=== PATIENT | male | born 1950 | race Caucasian/White ===

== ENCOUNTER 2018-04-01 15:28 | Emergency (ER) | payer OTHER ==
[~2018-04-01] VITALS: Ht 182.9 cm; Wt 114.3 kg
[~2018-04-01 15:28] MED LIST: CALCIUM; CHONDROITIN SU500 G1; GLUCOSAMINE1000 MG; MELATONIN3 MG PO; MSM1500 MG PO; PERCOCET 5-3251 EACH PO; PRINIVIL20 MG PO; SAW PALMETTO500 MG PO; SIMVASTATIN40 MG PO; VITAMIN D1000 UNI1 PO
[2018-04-01] MEDS ORDERED: AVAPRO 150 MG150 M1 PO (15:44)
[2018-04-01] MEDS ORDERED: FLOMAX0.4 MG PO (15:44)
[2018-04-01] MEDS ORDERED: PROSCAR 5MG TABL5 MG PO (15:44)
[2018-04-01] MEDS ORDERED: CLARITIN10 MG PO (15:45)
[2018-04-01] MEDS ORDERED: ROBAXIN500 MG PO (17:55)
[2018-04-01 18:10] VITALS: BP 128/91
== END 2018-04-01 18:12 | disposition home or self-care (01) ==
LOC: M.ERS 15:28
DX: S16.1XXA Strain of muscle, fascia and tendon at neck level, initial encounter (principal); Z88.6 Allergy status to analgesic agent; S30.0XXA Contusion of lower back and pelvis, initial encounter; W19.XXXA Unspecified fall, initial encounter; Y93.89 Activity, other specified; Y92.89 Other specified places as the place of occurrence of the external cause; Y99.8 Other external cause status

== ENCOUNTER 2018-08-11 13:47 | Inpatient (IN) | payer OTHER ==
[~2018-08-11] VITALS: Ht 182.9 cm; Wt 116.6 kg
--- NOTE | ~2018-08-11 | PROC ---
[facility] [address] [place] [address] PROCEDURE REPORT Name: MIKALA ALMEIDA Room: [address] IN M.R.#: [id number] Admission: 08/11/18 Attend Phys: Jon Batista MD Discharge: 08/13/18 Date of : 52 Report #: [id number] THIS REPORT FOR: //name// For GI report, please see the Provation report in Per[employer] 7 content. By: [id number] Records Staff EKATERINA /PETER
[~2018-08-11 13:47] MED LIST changes: +AVAPRO 150 MG150 M1 PO; -CHONDROITIN SU500 G1; +CHONDROITIN SU500 G1 PO; +CLARITIN10 MG PO; +FLOMAX0.4 MG PO; -GLUCOSAMINE1000 MG; +GLUCOSAMINE1000 MG PO; -MSM1500 MG PO; +MSM500 MG PO; +PROSCAR 5MG TABL5 MG PO; +ROBAXIN500 MG PO
[2018-08-11 13:59] VITALS: BP 95/66
[2018-08-11 14:52] LABS: ABSOLUTE BASOPHILS 0.1 thou/uL (0.0-0.2); ABSOLUTE EOSINOPHILS 0.2 thou/uL (0.0-0.7); ABSOLUTE LYMPHOCYTES 0.7 thou/uL (0.8-5.3); ABSOLUTE MONOCYTES 0.4 thou/uL (0.0-1.2); ABSOLUTE NEUTROPHILS 5.2 thou/uL (1.6-8.1); EOSINOPHILS 3.1 %; HEMATOCRIT 41.2 % (42.0-52.0); HEMOGLOBIN 13.9 gm/dL (14.0-18.0); LYMPHOCYTES 10.7 %; MCH 31.5 pg (26.0-34.0); MCHC 33.7 g/dL (28.0-37.0); MCV 93.4 fL (80.0-100.0); MONOCYTES 6.5 %; MPV 9.2 fl. (7.2-11.1); NUCLEATED RBCS 0 /100WBC; PLATELET COUNT* 174 thou/uL (150-400); POLYS 78.7 %; RBC 4.41 mil/uL (4.50-6.00); RDW-CV 13.2 % (10.5-14.5); WBC 6.7 thou/uL (4.0-11.0)
[2018-08-11 15:00] LABS: ANION GAP 7 mmol/L (7-16); APTT 25.9 Seconds (25.0-31.3); BUN 20 mg/dL (7-18); CALCIUM 8.9 mg/dL (8.5-10.1); CHLORIDE 107 mmol/L (98-107); CO2 25 mmol/L (21-32); CREATININE 1.1 mg/dL (0.6-1.3); GLUCOSE 106 mg/dL (70-99); POTASSIUM 4.2 mmol/L (3.5-5.1); PROTIME 10.4 Seconds (9.20-11.50); SODIUM 139 mmol/L (136-145)
[2018-08-11 15:06] LABS: ALBUMIN 3.2 g/dL (3.4-5.0); ALKALINE PHOSPHATASE 92 U/L (46-116); LIPASE 81 U/L (73-393); SGOT 23 U/L (15-37); SGPT 32 U/L (30-65); TOTAL BILIRUBIN 0.3 mg/dL (<0.1-1.0); TOTAL PROTEIN 6.5 g/dL (6.4-8.2); TROPONIN-I LEVEL <0.06 ng/mL (<0.06)
[2018-08-11 16:50] VITALS: BP 120/80
[2018-08-11 16:59] VITALS: BP 120/70
[2018-08-11 17:12] LABS: URINE BILIRUBIN NEGATIVE (Negative); URINE BLOOD NEGATIVE (Negative); URINE CLARITY CLEAR; URINE COLOR YELLOW; URINE GLUCOSE-RANDOM NEGATIVE (Negative); URINE KETONES NEGATIVE (Negative); URINE LEUKOCYTES-REFLEX NEGATIVE (Negative); URINE NITRITE-REFLEX NEGATIVE (Negative); URINE PROTEIN NEGATIVE (Negative); URINE SPECIFIC GRAVITY <= 1.005 (1.005-1.030); URINE UROBILINOGEN 0.2 E.U./dl (0.2-1.0)
[2018-08-11] MEDS ORDERED: TUMS PO (17:16)
--- NOTE | 2018-08-11 17:24 | NUR ---
PT ADMITTED TO ROOM 233 AROUND 1650 WITH DX GI BLEED. REFER TO ASSESSMENT. PT HAS ROUTINE GI CONSULT ON FILE. WILL BE NPO AFTER MIDNIGHT FOR ANTICIPATED TESTS TOMORROW. VSS. TELE SR WITH RATE IN THE 80'S. NO OTHER CONCERNS AT THIS TIME. CLWR. WCTM.
[2018-08-11 20:00] VITALS: BP 115/71
[2018-08-12] VITALS: BP 108/69
[2018-08-12 04:00] VITALS: BP 125/75
--- NOTE | 2018-08-12 04:39 | NUR ---
ASSUMED CARE OF PT AFTER REPORT AT 1930. PT [id number]. VSS. PHYSICAL ASSESSMENT COMPLETED AND CHARTED. PT ON RA WITH 97% O2 SAT. PT TRACING SR/ST ON TELE. PT UPASLIB TO RESTROOM. INSTRUCTED ON NPO POST MIDNIGHT FOR GI CONSULT. COMMUNICATES UNDERSTANDING. DENIES ANY PAIN OR DISCOMFORT. CALL LIGHT WITHIN REACH. BED IN LOW POSITION.
[2018-08-12 09:20] VITALS: BP 121/84
--- NOTE | 2018-08-12 11:30 | NUR ---
MET WITH PT TO DISCUSS HOME SITUATION/DC PLANNING. PT LIVES WITH . HE IS NORMALLY INDEPENDENT AND ACTIVE. USES NO EQUIPMENT AND HASN'T HAD HH. HE DOESN'T ANTICIPATE ANY DC NEEDS AT THIS TIME. WILL FOLLOW
[2018-08-12 12:00] VITALS: BP 105/56
--- NOTE | 2018-08-12 15:30 | EKG ---
[place] [address] ELECTROCARDIOGRAM REPORT Name: MIKALA ALMEIDA Room: [place] [address] ADM IN .R.#: [id number] Admission: 08/11/18 Attend Phys: Jon Batista MD Discharge: Date of : 52 Report #: [id number] THIS REPORT FOR: //name// [facility] ED Test Date: 2018-08-11 Test Time: 14:23:21 Pat Name: MIKALA ALMEIDA Department: Room: [facility] Gender: M Contact Representative: GERALDINE : 1950 Requested By: Tahir Campbell Order Number: [id number] MD: Tree Marie Measurements Intervals [place] Rate: 81 P: 5 CO: 167 QRS: -28 QRSD: 95 T: 1 QT: 381 QTc: 443 Interpretive Statements Sinus rhythm Borderline left axis deviation Abnormal R-wave progression, late transition Borderline T abnormalities, inferior leads Compared to ECG 07/22/2012 11:08:18 no change Electronically Signed On 08-12-2018 15:29:54 HAND ROLLER by Tree Marie [email or web address] <ELECTRONICALLY SIGNED> By: Tree Marie MD, FACC 08/12/18 1529 1423 1423 Tree Marie MD, [facility] /EPI
[2018-08-12 16:18] VITALS: BP 119/85
--- NOTE | 2018-08-12 18:07 | NUR ---
Assumed care of pt at 0700, pt assessment complete. pt up ad sherif, is able to make needs known. fluids infusing at 150ml/HR, pt scheduled to have colonoscopy tomorrow at 0800. Bowel prep started, Golytely and first dose of dulcolax administered.Pt currently in his room watching television, call light in reach, hourly rounding maintained. will cont to monitor.
[2018-08-12 20:00] VITALS: BP 143/75
[2018-08-13] VITALS: BP 124/71
[2018-08-13 00:20] VITALS: BP 143/75
[2018-08-13 04:00] VITALS: BP 133/75
[2018-08-13 05:56] LABS: HEMATOCRIT 32.2 % (42.0-52.0); HEMOGLOBIN 10.9 gm/dL (14.0-18.0); MCH 31.9 pg (26.0-34.0); MCHC 33.8 g/dL (28.0-37.0); MCV 94.4 fL (80.0-100.0); MPV 9.9 fl. (7.2-11.1); RBC 3.41 mil/uL (4.50-6.00); RDW-CV 13.3 % (10.5-14.5); WBC 3.8 thou/uL (4.0-11.0)
--- NOTE | 2018-08-13 06:57 | NUR ---
Pt a/o x 4. RA. VSS. Up ad sherif. Last Golytely intake before midnight with a total of 2800 mL. BM x 15 total. Void-unmeasured x 10 total. Denies pain or any other discomfort at this time. Call light within reach. Fall precautions maintained. Will continue to monitor.
[2018-08-13 07:43] VITALS: BP 142/84
[2018-08-13 11:10] VITALS: BP 151/72
[2018-08-13 11:50] VITALS: BP 151/72
--- NOTE | 2018-08-13 13:56 | NUR ---
PT GIVEN DC INSTRUCTIONS AND VERBALIZES UNDERSTANDING. PT WAITING FOR TO RETURN FOR RIDE HOME. IV DC'D INTACT. PT HAS NO OTHER CONCERNS AT THIS TIME. CLWR. WCTM.
== END 2018-08-13 14:25 | disposition home or self-care (01) | DRG 347 ==
LOC: M.ERS 13:47 → M.2W 15:52 → M.TBA-ER 15:52 → M.2W 16:50
PROVIDERS: Family Medicine; Internal Medicine Gastroenterology
PROC: 06LY4CC Occlusion of Hemorrhoidal Plexus with Extraluminal Device, Percutaneous Endoscopic Approach (ICD-10-PCS; principal; 2018-08-13)
DX: K64.8 Other hemorrhoids (principal); K57.31 Diverticulosis of large intestine without perforation or abscess with bleeding; E44.1 Mild protein-calorie malnutrition; K64.4 Residual hemorrhoidal skin tags; I10 Essential (primary) hypertension; E78.5 Hyperlipidemia, unspecified; D50.0 Iron deficiency anemia secondary to blood loss (chronic); Z68.34 Body mass index [BMI] 34.0-34.9, adult; Z88.1 Allergy status to other antibiotic agents; Z88.6 Allergy status to analgesic agent; Z79.899 Other long term (current) drug therapy; Z87.11 Personal history of peptic ulcer disease